=== PATIENT | female | born 1970 | race Caucasian/White ===

== ENCOUNTER 2017-06-27 18:27 | Emergency (ER) | payer OTHER ==
[~2017-06-27 18:27] MED LIST: ADVIL PM1 TABLET PO; ADVIL200 M3 PO; ADVIL200 MG PO; ALLEGRA30 MG PO; AMBIEN5 MG PO; CYMBALTA60 MG PO; DULOXETINE HCL60 MG PO; ESCITALOPRAM OX20 MG PO; FLEXERIL10 MG PO; FLONASE16 G1 BOTH NARES; LEXAPRO10 MG PO; LEXAPRO20 MG PO; MOTRIN600 MG PO; MOTRIN800 MG PO; NICODERM CQ1 EAC2 TD; NOHOMEMEDS; PERCOCET 10/1 TABLET PO; PERCOCET 5/31 TABLET PO; PREDNISONE10 MG PO; PRILOSEC40 MG PO; SINGULAIR10 MG PO; VALIUM5 MG PO; XANAX1 MG PO; [UNRECOGNIZED DRUG - OTHER] PO; no home
== END 2017-06-27 18:42 | disposition left against medical advice (07) ==
LOC: EME 18:27
DX: R07.9 Chest pain, unspecified (principal); R06.02 Shortness of breath; Z53.21 Procedure and treatment not carried out due to patient leaving prior to being seen by health care provider
CPT/HCPCS: 93005